=== PATIENT | female | born 1965 | race Two or more races ===

== ENCOUNTER → 2020-04-04 | Outpatient (CLI) | payer MEDICAID ==
[~2020-04-04] MED LIST: CARB200T6 PO; CHOL200077 PO; DICL100G27 TP; MELO-104 PO
== END | disposition home or self-care (01) ==
LOC: LAB 12:15
PROVIDERS: ATTEND Orthopaedic Surgery
DX: Z01.818 Encounter for other preprocedural examination (principal); Z11.59 Encounter for screening for other viral diseases; M19.90 Unspecified osteoarthritis, unspecified site
CPT/HCPCS: C9803; U0003